=== PATIENT | male | born 1970 | race Caucasian/White ===

== ENCOUNTER 2018-02-03 08:42 | Outpatient (CLI) | payer BC ==
--- NOTE | 2018-02-03 10:41 | ULT ---
ABDOMINAL ULTRASOUND: History: Elevated LFTs. Fever. Hematuria. Technique: Multiple longitudinal and transverse images of the abdomen was obtained using a multihertz curvilinear transducer. Real-time, color flow, and spectral waveform doppler analysis was used to ev aluate the abdomen. FINDINGS: There are fibrofatty changes seen in the liver. No definite evidence of hepatic parenchymal masses or lesions seen. The spleen is unremarkable. Abdominal aorta and inferior vena cava are unremarkable. The gallbladder is unremarkable but no evidence of gallstones. No evidence of intrahepatic biliary di latation is seen. The common bile duct is of normal size measuring 4.6 mm. Visualized portions of the pancreas is unremarkable. Normal hepatopedal flow is seen in the portal system. Both kidneys are unremarkable with no evidence of renal parenchymal masses or lesions. Right kidney measures 11.5 and the left kidney 11.9 cm from pole to pole. IMPRESSION: Normal abdominal ultrasound. POS: [facility]
== END 2018-02-03 08:43 | disposition home or self-care (01) ==
LOC: RAD 08:42
PROVIDERS: ATTEND Family Medicine
DX: R31.9 Hematuria, unspecified (principal); R74.0 Nonspecific elevation of levels of transaminase and lactic acid dehydrogenase [LDH]
CPT/HCPCS: 76700